=== PATIENT | male | born 1945 | race Caucasian/White ===

== ENCOUNTER 2020-04-10 15:21 | Observation (INO) ==
[2020-04-10] MEDS ORDERED: Isovue-370 500 ML BOTTLE IVP ONE (16:24)
[2020-04-10 16:47] LABS: Basophils # 0.1 K/mcL (0.0-0.2); Basophils % 0.7 %; Eosinophils # 0.1 K/mcL (0.0-0.6); Eosinophils % 0.9 %; Hematocrit 43.5 % (37.5-50.1); Hemoglobin 13.4 g/dL (12.9-16.9); INR 2.3; Immature Granulocytes % 1.4 % (0-4); Lymphocytes # 1.1 K/mcL (0.6-4.6); Lymphocytes % 8.1 %; Mean Corpuscular HGB Conc 30.8 g/dL (31.6-35.5); Mean Corpuscular Hemoglobin 29.3 pg (28.0-33.3); Monocytes # 1.5 K/mcL (0.0-1.3); Monocytes % 10.8 %; Neutrophils # 10.6 K/mcL (1.6-8.9); Platelet Count 187 K/mcL (140-400); Prothrombin Time 26.7 Seconds (9.4-12.1); Red Blood Count 4.58 M/mcL (4.19-5.50); Red Cell Distribution Width 18.7 % (11.5-14.5); Segmented Neutrophils % 78.1 %; White Blood Count 13.6 K/mcL (4.3-11.1)
[2020-04-10 16:49] LABS: Activated Partial Thrombo Time 40.9 Seconds (26.0-36.0)
[2020-04-10 17:14] LABS: Albumin 3.8 g/dL (3.5-5.7); Bilirubin,Total 0.8 mg/dL (0.3-1.0); Calcium 9.2 mg/dL (8.6-10.3); Globulin 3.9 g/dL (2.4-3.5); Potassium 4.5 mEq/L (3.5-5.1); Total Protein 7.7 g/dL (6.4-8.9)
[2020-04-10] MEDS ORDERED: Ampicillin/Sulbactam 3,000 MG in 0.9 % Sodium Chloride Mini Bag 100 ML IVPB ONE (18:45)
[2020-04-10] MEDS ORDERED: Naloxone 0.4 MG/ML INJ IVP PRN (19:28)
[2020-04-10] MEDS ORDERED: *HR* Warfarin 1 MG TABLET PO ONE (22:45)
[2020-04-10] MEDS ORDERED: Vancomycin 1 EACH in 0.9 % Sodium Chloride 1 ML IVPB PRN (23:00)
[2020-04-10] MEDS ORDERED: Vancomycin 1,500 MG/265 ML IV.SOLN IVPB ONE (23:00)
[2020-04-10] MEDS: hydrALAZINE 10 MG TABLET PO SCH (23:03)
[2020-04-11] MEDS ORDERED: Piperacillin/Tazobactam 3.375 GM in 0.9 % Sodium Chloride Mini Bag 100 ML IVPB SCH
[2020-04-11 01:41] LABS: Basophils # 0.1 K/mcL (0.0-0.2); Basophils % 0.7 %; Eosinophils # 0.2 K/mcL (0.0-0.6); Eosinophils % 1.4 %; Hematocrit 38.9 % (37.5-50.1); Hemoglobin 12.3 g/dL (12.9-16.9); Immature Granulocytes % 1.3 % (0-4); Lymphocytes # 1.1 K/mcL (0.6-4.6); Lymphocytes % 10.2 %; Mean Corpuscular HGB Conc 31.6 g/dL (31.6-35.5); Mean Corpuscular Hemoglobin 30.3 pg (28.0-33.3); Mean Corpuscular Volume 95.8 fL (83.0-100.0); Mean Platelet Volume 10.4 fL (9.4-12.4); Monocytes # 1.2 K/mcL (0.0-1.3); Monocytes % 11.4 %; Neutrophils # 8.1 K/mcL (1.6-8.9); Platelet Count 151 K/mcL (140-400); Red Blood Count 4.06 M/mcL (4.19-5.50); Red Cell Distribution Width 18.6 % (11.5-14.5); White Blood Count 10.8 K/mcL (4.3-11.1)
[2020-04-11 01:42] LABS: INR 2.5; Prothrombin Time 28.3 Seconds (9.4-12.1)
[2020-04-11 01:55] LABS: Albumin 3.1 g/dL (3.5-5.7); Bilirubin,Total 0.7 mg/dL (0.3-1.0); Calcium 8.8 mg/dL (8.6-10.3); Globulin 3.1 g/dL (2.4-3.5); Potassium 4.6 mEq/L (3.5-5.1); Total Protein 6.2 g/dL (6.4-8.9)
[2020-04-11] MEDS: Budesonide/Formoterol 80/4.5 1 PUFF INH IH SCH ×2 (07:48→19:37)
[2020-04-11] MEDS: hydrALAZINE 10 MG TABLET PO SCH ×2 (08:01→20:08)
[2020-04-11] MEDS: amLODIPine 5 MG TABLET PO SCH (08:02)
[2020-04-11] MEDS: predniSONE 5 MG TABLET PO SCH (08:02)
[2020-04-11] MEDS: Cholecalciferol (D-3) 1,000 UNIT (25MCG) TABLET PO SCH (08:02)
[2020-04-11] MEDS: Piperacillin/Tazobactam 3.375 GM in 0.9 % Sodium Chloride Mini Bag 100 ML IVPB SCH ×2 (11:08→23:41)
[2020-04-11] MEDS ORDERED: *HR* Warfarin 1 MG TABLET PO ONE ×2 (13:25→15:30)
[2020-04-11 15:05] LABS: Hepatitis B Surface Antibody < 3.10 mIU/mL
[2020-04-11 15:16] LABS: Hepatitis B Surface Antigen Nonreactive (Nonreactive)
[2020-04-11] MEDS ORDERED: *HR* Warfarin 1 MG TABLET PO SCH (18:00)
[2020-04-11] MEDS ORDERED: Warfarin perPT PO PRN (18:00)
[2020-04-12 05:23] LABS: INR 2.4; Prothrombin Time 27.2 Seconds (9.4-12.1)
[2020-04-12 05:25] LABS: Basophils # 0.1 K/mcL (0.0-0.2); Basophils % 0.6 %; Eosinophils # 0.2 K/mcL (0.0-0.6); Eosinophils % 1.5 %; Hematocrit 36.7 % (37.5-50.1); Hemoglobin 11.4 g/dL (12.9-16.9); Immature Granulocytes % 0.9 % (0-4); Lymphocytes % 8.8 %; Mean Corpuscular HGB Conc 31.1 g/dL (31.6-35.5); Mean Corpuscular Volume 96.6 fL (83.0-100.0); Mean Platelet Volume 10.2 fL (9.4-12.4); Monocytes # 1.1 K/mcL (0.0-1.3); Monocytes % 10.3 %; Neutrophils # 8.5 K/mcL (1.6-8.9); Platelet Count 178 K/mcL (140-400); Red Cell Distribution Width 18.5 % (11.5-14.5); Segmented Neutrophils % 77.9 %; White Blood Count 10.9 K/mcL (4.3-11.1)
[2020-04-12 05:39] LABS: Calcium 8.6 mg/dL (8.6-10.3); Potassium 4.3 mEq/L (3.5-5.1)
[2020-04-12] MEDS ORDERED: 0.9 % Sodium Chloride 250 ML IVC PRN (07:13)
[2020-04-12] MEDS ORDERED: 0.9 % Sodium Chloride 1,000 ML PRIME SCH (07:15)
[2020-04-12] MEDS: Budesonide/Formoterol 80/4.5 1 PUFF INH IH SCH ×2 (07:16→19:22)
[2020-04-12] MEDS: Cholecalciferol (D-3) 1,000 UNIT (25MCG) TABLET PO SCH (12:30)
[2020-04-12] MEDS: hydrALAZINE 10 MG TABLET PO SCH ×2 (12:30→19:52)
[2020-04-12] MEDS: predniSONE 5 MG TABLET PO SCH (12:30)
[2020-04-12] MEDS: amLODIPine 5 MG TABLET PO SCH (12:30)
[2020-04-12] MEDS: Piperacillin/Tazobactam 3.375 GM in 0.9 % Sodium Chloride Mini Bag 100 ML IVPB SCH ×2 (12:31→23:26)
[2020-04-12] MEDS ORDERED: *HR* Warfarin 1 MG TABLET PO ONE (18:00)
[2020-04-13 02:32] LABS: Basophils # 0.1 K/mcL (0.0-0.2); Basophils % 0.6 %; Eosinophils # 0.2 K/mcL (0.0-0.6); Eosinophils % 1.4 %; Hemoglobin 11.9 g/dL (12.9-16.9); Immature Granulocytes % 0.7 % (0-4); Lymphocytes # 1.1 K/mcL (0.6-4.6); Lymphocytes % 10.1 %; Mean Corpuscular HGB Conc 30.5 g/dL (31.6-35.5); Mean Corpuscular Hemoglobin 28.8 pg (28.0-33.3); Mean Corpuscular Volume 94.4 fL (83.0-100.0); Mean Platelet Volume 10.2 fL (9.4-12.4); Monocytes % 8.9 %; Neutrophils # 8.5 K/mcL (1.6-8.9); Platelet Count 189 K/mcL (140-400); Red Blood Count 4.13 M/mcL (4.19-5.50); Red Cell Distribution Width 18.4 % (11.5-14.5); Segmented Neutrophils % 78.3 %; White Blood Count 10.8 K/mcL (4.3-11.1)
[2020-04-13 02:38] LABS: INR 2.3; Prothrombin Time 26.4 Seconds (9.4-12.1)
[2020-04-13 02:50] LABS: Calcium 8.6 mg/dL (8.6-10.3); Potassium 4.2 mEq/L (3.5-5.1)
[2020-04-13 07:04] VITALS: BP 119/66
[2020-04-13] MEDS: Budesonide/Formoterol 80/4.5 1 PUFF INH IH SCH (07:37)
[2020-04-13] MEDS: hydrALAZINE 10 MG TABLET PO SCH (07:49)
[2020-04-13] MEDS: amLODIPine 5 MG TABLET PO SCH (07:49)
[2020-04-13] MEDS: Cholecalciferol (D-3) 1,000 UNIT (25MCG) TABLET PO SCH (07:49)
[2020-04-13] MEDS: predniSONE 5 MG TABLET PO SCH (07:50)
[2020-04-13] MEDS ORDERED: *HR* Warfarin 1 MG TABLET PO ONE (18:00)
== END 2020-04-13 10:15 | disposition home or self-care (01) ==
LOC: EMEROOARM 15:21 → 2ANU 15:21 → SUATTDRO 19:31 → 2ANU 19:59
PROVIDERS: ADMIT Internal Medicine; ATTEND Family Medicine

== ENCOUNTER 2020-05-17 09:54 | Inpatient (IN) ==
[2020-05-17] MEDS ORDERED: Dexamethasone 4 MG/ML VIAL IVP STA (10:27)
[2020-05-17 10:44] LABS: Basophils # 0.1 K/mcL (0.0-0.2); Basophils % 0.3 %; Immature Granulocytes % 1.1 % (0-4); Lymphocytes # 0.6 K/mcL (0.6-4.6); Lymphocytes % 2.4 %; Mean Corpuscular HGB Conc 34.2 g/dL (31.6-35.5); Mean Corpuscular Volume 99.5 fL (83.0-100.0); Mean Platelet Volume 10.2 fL (9.4-12.4); Monocytes # 1.3 K/mcL (0.0-1.3); Monocytes % 5.9 %; Neutrophils # 20.4 K/mcL (1.6-8.9); Platelet Count 163 K/mcL (140-400); Red Blood Count 3.82 M/mcL (4.19-5.50); Red Cell Distribution Width 17.6 % (11.5-14.5); Segmented Neutrophils % 90.3 %; White Blood Count 22.6 K/mcL (4.3-11.1)
[2020-05-17 11:01] LABS: Calcium 9.1 mg/dL (8.6-10.3); Potassium 4.6 mEq/L (3.5-5.1)
[2020-05-17] MEDS ORDERED: cefTRIAXone 1,000 MG in Water for inj. (sterile) 10 ML IVP ONE (11:47)
[2020-05-17] MEDS ORDERED: Azithromycin 500 MG in 0.9 % Sodium Chloride 250 ML IVPB ONE (11:47)
[2020-05-17] MEDS ORDERED: Acetaminophen 325 MG TABLET PO PRN (13:12)
[2020-05-17] MEDS ORDERED: Ondansetron 4 MG/2 ML VIAL IVP PRN (13:12)
[2020-05-17] MEDS ORDERED: *HR* Heparin 5,000 UNIT/ML VIAL SQ SCH (16:00)
[2020-05-17] MEDS ORDERED: *HR* Heparin 10,000 UNIT/10 ML VIAL IV PRN (16:48)
[2020-05-17] MEDS ORDERED: 0.9 % Sodium Chloride 250 ML IVC PRN (16:48)
[2020-05-17] MEDS ORDERED: 0.9 % Sodium Chloride 1,000 ML PRIME SCH (17:00)
[2020-05-17 19:07] LABS: INR 2.2; Prothrombin Time 25.3 Seconds (9.4-12.1)
[2020-05-17 19:43] LABS: Hepatitis B Surface Antibody < 3.10 mIU/mL
[2020-05-17 19:53] LABS: Hepatitis B Surface Antigen Nonreactive (Nonreactive)
[2020-05-17] MEDS ORDERED: *HR* Warfarin 1 MG TABLET PO ONE (21:45)
[2020-05-17] MEDS: Budesonide/Formoterol 80/4.5 1 PUFF INH IH SCH (22:06)
[2020-05-17] MEDS: Ipratropium 1 PUFF INHALER IH SCH (22:06)
[2020-05-17] MEDS: Dexamethasone 4 MG/ML VIAL IVP SCH (22:24)
[2020-05-17] MEDS ORDERED: Ipratropium/Albuterol Neb 3 ML IH SCH (23:00)
[2020-05-18] MEDS: Ipratropium 1 PUFF INHALER IH SCH ×4 (03:27→21:14)
[2020-05-18] MEDS ORDERED: 0.9 % Sodium Chloride 250 ML ONE (04:04)
[2020-05-18 04:37] LABS: Hematocrit 35.1 % (37.5-50.1); Hemoglobin 12.2 g/dL (12.9-16.9); Mean Corpuscular HGB Conc 34.8 g/dL (31.6-35.5); Mean Corpuscular Hemoglobin 34.9 pg (28.0-33.3); Mean Corpuscular Volume 100.3 fL (83.0-100.0); Mean Platelet Volume 10.8 fL (9.4-12.4); Platelet Count 143 K/mcL (140-400); Red Cell Distribution Width 17.5 % (11.5-14.5); White Blood Count 16.3 K/mcL (4.3-11.1)
[2020-05-18 05:03] LABS: INR 2.9; Prothrombin Time 32.1 Seconds (9.4-12.1)
[2020-05-18 05:16] LABS: BUN/Creatinine Ratio 13 (6-26); Blood Urea Nitrogen 78 mg/dL (8-23); C-Reactive Protein > 300 mg/L (Less than 10); Calcium 8.4 mg/dL (8.6-10.3); Carbon Dioxide 21 mEq/L (23-29); Chloride 101 mEq/L (98-107); Ferritin > 1500 ng/mL (20-250); Glucose 117 mg/dL (70-105); Lactate Dehydrogenase 323 Units/L (140-271); Magnesium 2.1 mg/dL (1.6-2.6); Osmolality,Calculated 306 (280-300); Potassium 4.5 mEq/L (3.5-5.1); Sodium 136 mEq/L (136-145); eGFR For African Americans 12 (> 60); eGFR For Non-African Americans 10 (> 60)
[2020-05-18] MEDS ORDERED: *HR* Heparin 10,000 UNIT/10 ML VIAL IV PRN ×2 (07:51→13:05)
[2020-05-18] MEDS ORDERED: 0.9 % Sodium Chloride 250 ML IVC PRN (07:51)
[2020-05-18 07:52] LABS: Alanine Aminotransferase 42 Units/L (7-52); Albumin 2.9 g/dL (3.5-5.7); Albumin/Globulin Ratio 0.8 (1.1-2.2); Alkaline Phosphatase 75 Units/L (34-104); Aspartate Amino Transferase 49 Units/L (13-39); Bilirubin,Direct 0.4 mg/dL (0.0-0.2); Bilirubin,Indirect 0.4 mg/dL (0.0-1.0); Bilirubin,Total 0.8 mg/dL (0.3-1.0); Globulin 3.7 g/dL (2.4-3.5); Total Protein 6.6 g/dL (6.4-8.9)
[2020-05-18] MEDS: cefTRIAXone 1,000 MG in Water for inj. (sterile) 10 ML IVP SCH (07:59)
[2020-05-18] MEDS: amLODIPine 5 MG TABLET PO SCH (08:00)
[2020-05-18] MEDS: Dexamethasone 4 MG/ML VIAL IVP SCH ×2 (08:00→20:31)
[2020-05-18] MEDS: Azithromycin 250 MG TABLET PO SCH (08:00)
[2020-05-18] MEDS: Budesonide/Formoterol 80/4.5 1 PUFF INH IH SCH ×2 (10:25→21:14)
[2020-05-18] MEDS ORDERED: Heparin 1,000 UNITS/500 mL 500 ML ONE (13:36)
[2020-05-18] MEDS ORDERED: *HR* Heparin 5,000 UNIT/ML VIAL ONE (14:17)
[2020-05-18] MEDS: Calcium Acetate 667 MG CAPSULE PO SCH (16:12)
[2020-05-18] MEDS: Bumetanide 1 MG TABLET PO SCH (16:14)
[2020-05-18] MEDS ORDERED: Warfarin perPT PO PRN (18:00)
[2020-05-19] MEDS: Ipratropium 1 PUFF INHALER IH SCH ×4 (03:29→21:12)
[2020-05-19 04:01] LABS: INR 4.3
[2020-05-19 04:02] LABS: Prothrombin Time 48.2 Seconds (9.4-12.1)
[2020-05-19 04:03] LABS: Calcium 8.4 mg/dL (8.6-10.3); Potassium 4.1 mEq/L (3.5-5.1)
[2020-05-19] MEDS ORDERED: 0.9 % Sodium Chloride 250 ML ONE (05:28)
[2020-05-19 07:29] LABS: Hematocrit 34.9 % (37.5-50.1); Hemoglobin 11.3 g/dL (12.9-16.9); Mean Corpuscular HGB Conc 32.4 g/dL (31.6-35.5); Mean Corpuscular Hemoglobin 30.7 pg (28.0-33.3); Mean Corpuscular Volume 94.8 fL (83.0-100.0); Mean Platelet Volume 11.4 fL (9.4-12.4); Platelet Count 163 K/mcL (140-400); Red Blood Count 3.68 M/mcL (4.19-5.50); White Blood Count 17.4 K/mcL (4.3-11.1)
[2020-05-19] MEDS: Bumetanide 1 MG TABLET PO SCH ×3 (07:59→19:26)
[2020-05-19] MEDS: Calcium Acetate 667 MG CAPSULE PO SCH ×3 (07:59→17:47)
[2020-05-19] MEDS: amLODIPine 5 MG TABLET PO SCH (07:59)
[2020-05-19] MEDS: Dexamethasone 4 MG/ML VIAL IVP SCH (08:00)
[2020-05-19] MEDS: Azithromycin 250 MG TABLET PO SCH (08:00)
[2020-05-19] MEDS: cefTRIAXone 1,000 MG in Water for inj. (sterile) 10 ML IVP SCH (08:00)
[2020-05-19] MEDS ORDERED: 0.9 % Sodium Chloride 250 ML IVC PRN (09:33)
[2020-05-19] MEDS ORDERED: *HR* Heparin 10,000 UNIT/10 ML VIAL IV PRN (09:33)
[2020-05-19 10:12] LABS: D-Dimer 30509 ng/mLFEU (0-500)
[2020-05-19] MEDS: Budesonide/Formoterol 80/4.5 1 PUFF INH IH SCH ×2 (10:29→21:12)
[2020-05-19] MEDS ORDERED: *HR* Heparin 5,000 UNIT/ML VIAL IVP PRN ×4 (10:36→16:30)
[2020-05-19] MEDS ORDERED: *HR* Heparin 5,000 UNIT/ML VIAL IVP ONE (10:36)
[2020-05-19] MEDS ORDERED: Heparin 25,000UNIT/250ML 1/2NS 25,000 UNIT/250 ML IV.SOLN IVC SCH ×2 (10:45→16:30)
[2020-05-19] MEDS ORDERED: *HR* Alteplase (Cathflo) 2 MG VIAL IVP ONE (10:45)
[2020-05-19] MEDS ORDERED: Dexamethasone 4 MG/ML VIAL IVP ONE ×2 (10:53)
[2020-05-19 11:12] LABS: Heparin anti-factor XA UFH < 0.04 IU/mL (0.30-0.70)
[2020-05-19] MEDS: Pantoprazole 40 MG VIAL IVP SCH (11:55)
[2020-05-19] MEDS ORDERED: *HR* Heparin 5,000 UNIT/ML VIAL SQ SCH (22:00)
[2020-05-20 01:21] LABS: Heparin anti-factor XA UFH 0.13 IU/mL (0.30-0.70)
[2020-05-20 01:27] LABS: BUN/Creatinine Ratio 14 (6-26); Blood Urea Nitrogen 51 mg/dL (8-23); C-Reactive Protein 156 mg/L (Less than 10); Calcium 8.7 mg/dL (8.6-10.3); Carbon Dioxide 23 mEq/L (23-29); Chloride 101 mEq/L (98-107); Glucose 174 mg/dL (70-105); Lactate Dehydrogenase 308 Units/L (140-271); Magnesium 2.3 mg/dL (1.6-2.6); Osmolality,Calculated 302 (280-300); Phosphorous 3.8 mg/dL (2.7-4.5); Potassium 4.2 mEq/L (3.5-5.1); Sodium 137 mEq/L (136-145); eGFR For African Americans 20 (> 60); eGFR For Non-African Americans 17 (> 60)
[2020-05-20 01:31] LABS: Prothrombin Time 44.1 Seconds (9.4-12.1)
[2020-05-20 01:42] LABS: Hematocrit 36.6 % (37.5-50.1); Hemoglobin 11.9 g/dL (12.9-16.9); Mean Corpuscular HGB Conc 32.5 g/dL (31.6-35.5); Mean Corpuscular Hemoglobin 31.1 pg (28.0-33.3); Mean Platelet Volume 10.4 fL (9.4-12.4); Platelet Count 143 K/mcL (140-400); Red Blood Count 3.83 M/mcL (4.19-5.50); Red Cell Distribution Width 16.9 % (11.5-14.5); White Blood Count 15.6 K/mcL (4.3-11.1)
[2020-05-20 01:44] LABS: Ferritin > 1500 ng/mL (20-250); Mean Corpuscular Volume 95.6 fL (83.0-100.0)
[2020-05-20] MEDS: Ipratropium 1 PUFF INHALER IH SCH ×4 (03:15→21:47)
[2020-05-20] MEDS: amLODIPine 5 MG TABLET PO SCH (08:45)
[2020-05-20] MEDS: Azithromycin 250 MG TABLET PO SCH (08:45)
[2020-05-20] MEDS: Calcium Acetate 667 MG CAPSULE PO SCH ×3 (08:45→16:18)
[2020-05-20] MEDS: Dexamethasone Sodium Phos/PF 10 MG/ML VIAL IVP SCH (08:46)
[2020-05-20] MEDS: Bumetanide 1 MG TABLET PO SCH ×2 (08:46→16:17)
[2020-05-20] MEDS: Pantoprazole 40 MG VIAL IVP SCH (08:48)
[2020-05-20] MEDS: cefTRIAXone 1,000 MG in Water for inj. (sterile) 10 ML IVP SCH (08:48)
[2020-05-20] MEDS: Budesonide/Formoterol 80/4.5 1 PUFF INH IH SCH ×2 (09:50→21:47)
[2020-05-21 01:28] LABS: Adenovirus F 40/41 PCR Not detected (Not detect); Astrovirus PCR Not detected (Not detect); C.difficile Toxin A/B Gene PCR Not detected (Not detect); Campylobacter by PCR Not detected (Not detect); Cryptosporidium by PCR Not detected (Not detect); Cyclospora cayetanensis PCR Not detected (Not detect); E. coli O157 by PCR Not detected (Not detect); Entamoeba histolytica PCR Not detected (Not detect); Enteroaggregative E.coli(EAEC) Not detected (Not detect); Enteropathogenic E.coli(EPEC) Not detected (Not detect); Enterotoxigenic E.coli (ETEC) Not detected (Not detect); Giardia lamblia PCR Not detected (Not detect); Norovirus GI/GII PCR Not detected (Not detect); Plesiomonas shigelloides PCR Not detected (Not detect); Rotavirus A PCR Not detected (Not detect); Salmonella PCR Not detected (Not detect); Sapovirus PCR Not detected (Not detect); Shig/EnteroinvasiveE coli EIEC Not detected (Not detect); Shigalike tox-prod E coli STEC Not detected (Not detect); Vibrio PCR Not detected (Not detect); Vibrio cholerae PCR Not detected (Not detect); Yersinia enterocolitica PCR Not detected (Not detect)
[2020-05-21] MEDS: Ipratropium 1 PUFF INHALER IH SCH ×4 (03:32→21:09)
[2020-05-21 06:31] LABS: Calcium 9.3 mg/dL (8.6-10.3); Potassium 4.7 mEq/L (3.5-5.1)
[2020-05-21 06:51] LABS: INR 4.6; Prothrombin Time 50.7 Seconds (9.4-12.1)
[2020-05-21] MEDS: Pantoprazole 40 MG VIAL IVP SCH (07:59)
[2020-05-21] MEDS: cefTRIAXone 1,000 MG in Water for inj. (sterile) 10 ML IVP SCH (07:59)
[2020-05-21] MEDS: Calcium Acetate 667 MG CAPSULE PO SCH ×3 (08:00→16:17)
[2020-05-21] MEDS: Bumetanide 1 MG TABLET PO SCH ×2 (08:00→16:17)
[2020-05-21] MEDS: Azithromycin 250 MG TABLET PO SCH (08:00)
[2020-05-21] MEDS: Dexamethasone Sodium Phos/PF 10 MG/ML VIAL IVP SCH (08:03)
[2020-05-21] MEDS: amLODIPine 5 MG TABLET PO SCH (08:04)
[2020-05-21] MEDS: Budesonide/Formoterol 80/4.5 1 PUFF INH IH SCH ×2 (11:07→21:10)
[2020-05-22] MEDS: Ipratropium 1 PUFF INHALER IH SCH ×4 (03:12→21:08)
[2020-05-22] MEDS ORDERED: 0.9 % Sodium Chloride 1,000 ML PRIME SCH (07:30)
[2020-05-22] MEDS ORDERED: 0.9 % Sodium Chloride 250 ML IVC PRN (07:30)
[2020-05-22] MEDS ORDERED: *HR* Heparin 10,000 UNIT/10 ML VIAL IV PRN (07:30)
[2020-05-22] MEDS: Pantoprazole 40 MG VIAL IVP SCH (07:49)
[2020-05-22] MEDS: Dexamethasone Sodium Phos/PF 10 MG/ML VIAL IVP SCH (07:49)
[2020-05-22] MEDS: amLODIPine 5 MG TABLET PO SCH (07:50)
[2020-05-22] MEDS: Bumetanide 1 MG TABLET PO SCH ×2 (07:50→16:05)
[2020-05-22] MEDS: Calcium Acetate 667 MG CAPSULE PO SCH ×3 (07:50→16:05)
[2020-05-22] MEDS: Budesonide/Formoterol 80/4.5 1 PUFF INH IH SCH ×2 (10:27→21:09)
[2020-05-22 13:04] LABS: Hematocrit 32.9 % (37.5-50.1); Hemoglobin 11.9 g/dL (12.9-16.9); Mean Corpuscular HGB Conc 36.2 g/dL (31.6-35.5); Mean Corpuscular Hemoglobin 37.3 pg (28.0-33.3); Mean Platelet Volume 10.8 fL (9.4-12.4); Platelet Count 115 K/mcL (140-400); Red Blood Count 3.19 M/mcL (4.19-5.50); White Blood Count 16.4 K/mcL (4.3-11.1)
[2020-05-22 13:13] LABS: Prothrombin Time 50.8 Seconds (9.4-12.1)
[2020-05-22 13:14] LABS: INR 4.6
[2020-05-22 13:19] LABS: Blood Urea Nitrogen > 130 mg/dL (8-23); Calcium 8.9 mg/dL (8.6-10.3); Carbon Dioxide 22 mEq/L (23-29); Chloride 101 mEq/L (98-107); Glucose 130 mg/dL (70-105); Potassium 4.9 mEq/L (3.5-5.1); Sodium 138 mEq/L (136-145); eGFR For African Americans 11 (> 60); eGFR For Non-African Americans 9 (> 60)
[2020-05-22 13:20] LABS: C-Reactive Protein 42 mg/L (Less than 10); Lactate Dehydrogenase 319 Units/L (140-271)
[2020-05-22 13:48] LABS: Ferritin > 1500 ng/mL (20-250)
[2020-05-23] MEDS: Ipratropium 1 PUFF INHALER IH SCH ×4 (03:14→21:48)
[2020-05-23 05:12] LABS: Hematocrit 36.6 % (37.5-50.1); Hemoglobin 12.7 g/dL (12.9-16.9); Mean Corpuscular HGB Conc 34.7 g/dL (31.6-35.5); Mean Corpuscular Hemoglobin 34.6 pg (28.0-33.3); Mean Corpuscular Volume 99.7 fL (83.0-100.0); Mean Platelet Volume 11.1 fL (9.4-12.4); Platelet Count 109 K/mcL (140-400); Red Blood Count 3.67 M/mcL (4.19-5.50); Red Cell Distribution Width 17.2 % (11.5-14.5); White Blood Count 23.4 K/mcL (4.3-11.1)
[2020-05-23 05:36] LABS: INR 4.3; Prothrombin Time 48.2 Seconds (9.4-12.1)
[2020-05-23] MEDS: Dexamethasone Sodium Phos/PF 10 MG/ML VIAL IVP SCH (07:34)
[2020-05-23] MEDS: Bumetanide 1 MG TABLET PO SCH ×2 (07:34→17:13)
[2020-05-23] MEDS: amLODIPine 5 MG TABLET PO SCH (07:35)
[2020-05-23] MEDS: Calcium Acetate 667 MG CAPSULE PO SCH ×3 (07:35→17:13)
[2020-05-23] MEDS: Budesonide/Formoterol 80/4.5 1 PUFF INH IH SCH ×2 (09:44→21:48)
[2020-05-23] MEDS ORDERED: Vancomycin 1 EACH in 0.9 % Sodium Chloride 250 ML IVPB PRN (10:00)
[2020-05-23] MEDS ORDERED: Vancomycin 1,500 MG/265 ML IV.SOLN IVPB ONE (10:13)
[2020-05-23] MEDS: Cefepime HCl 1,000 MG in Water for inj. (sterile) 10 ML IVP SCH (11:09)
[2020-05-23 15:19] LABS: Adenovirus Not Detected (Not Detect); Coronavirus 229E Not Detected (Not Detect); Coronavirus HKU1 Not Detected (Not Detect); Coronavirus NL63 Not Detected (Not Detect)
[2020-05-23 15:20] LABS: Bordetella Pertussis Not Detected (Not Detect); Chlamydophila pneumoniae Not Detected (Not Detect); Coronavirus OC43 Not Detected (Not Detect); Human Metapneumovirus Not Detected (Not Detect); Human Rhinovirus/Enterovirus Not Detected (Not Detect); Influenza A Subtype 2009 H1 Not Detected (Not Detect); Influenza B Not Detected (Not Detect); Mycoplasma pneumoniae Not Detected (Not Detect); Parainfluenza Virus 1 Not Detected (Not Detect); Parainfluenza Virus 2 Not Detected (Not Detect); Parainfluenza Virus 3 Not Detected (Not Detect); Parainfluenza Virus 4 Not Detected (Not Detect); Respiratory Syncytial Virus Not Detected (Not Detect)
[2020-05-23 15:25] LABS: SARS-CoV-2 DETECTED (Not Detect)
[2020-05-23] MEDS ORDERED: 0.9 % Sodium Chloride 500 ML ONE (15:42)
[2020-05-24] MEDS: Ipratropium 1 PUFF INHALER IH SCH ×4 (03:28→22:11)
[2020-05-24 03:48] LABS: Hematocrit 34.7 % (37.5-50.1); Mean Corpuscular HGB Conc 34.6 g/dL (31.6-35.5); Mean Corpuscular Hemoglobin 34.5 pg (28.0-33.3); Mean Corpuscular Volume 99.7 fL (83.0-100.0); Mean Platelet Volume 10.4 fL (9.4-12.4); Platelet Count 100 K/mcL (140-400); Red Blood Count 3.48 M/mcL (4.19-5.50); Red Cell Distribution Width 17.7 % (11.5-14.5)
[2020-05-24 04:12] LABS: Calcium 8.7 mg/dL (8.6-10.3); Potassium 5.3 mEq/L (3.5-5.1)
[2020-05-24] MEDS: Calcium Acetate 667 MG CAPSULE PO SCH ×3 (08:10→17:52)
[2020-05-24] MEDS ORDERED: *HR* Heparin 10,000 UNIT/10 ML VIAL IV PRN (08:10)
[2020-05-24] MEDS: Bumetanide 1 MG TABLET PO SCH ×2 (08:10→17:52)
[2020-05-24] MEDS ORDERED: 0.9 % Sodium Chloride 250 ML IVC PRN (08:10)
[2020-05-24] MEDS: Dexamethasone Sodium Phos/PF 10 MG/ML VIAL IVP SCH (08:11)
[2020-05-24 09:25] LABS: Mean Corpuscular Volume 103.1 fL (83.0-100.0)
[2020-05-24] MEDS: Budesonide/Formoterol 80/4.5 1 PUFF INH IH SCH ×2 (09:25→22:11)
[2020-05-24] MEDS: Cefepime HCl 1,000 MG in Water for inj. (sterile) 10 ML IVP SCH (10:38)
[2020-05-24] MEDS ORDERED: *HR* LORazepam 2 MG/ML VIAL IVP ONE (13:35)
[2020-05-25] MEDS: Ipratropium 1 PUFF INHALER IH SCH ×4 (03:48→22:01)
[2020-05-25 04:27] LABS: Hematocrit 37.2 % (37.5-50.1); Mean Corpuscular Volume 96.4 fL (83.0-100.0); Red Blood Count 3.86 M/mcL (4.19-5.50)
[2020-05-25 04:29] LABS: Hemoglobin 12.5 g/dL (12.9-16.9); Immature Platelets 7.7 % (1.1-6.1); Mean Corpuscular HGB Conc 33.6 g/dL (31.6-35.5); Mean Corpuscular Hemoglobin 32.4 pg (28.0-33.3); Mean Platelet Volume 11.5 fL (9.4-12.4); Red Cell Distribution Width 16.3 % (11.5-14.5); White Blood Count 29.1 K/mcL (4.3-11.1)
[2020-05-25 04:49] LABS: Calcium 8.5 mg/dL (8.6-10.3); Potassium 5.1 mEq/L (3.5-5.1)
[2020-05-25] MEDS: Bumetanide 1 MG TABLET PO SCH ×2 (08:29→16:13)
[2020-05-25] MEDS: Calcium Acetate 667 MG CAPSULE PO SCH ×3 (08:29→16:13)
[2020-05-25] MEDS: Dexamethasone 4 MG/ML VIAL IVP SCH (08:34)
[2020-05-25] MEDS: Budesonide/Formoterol 80/4.5 1 PUFF INH IH SCH ×2 (09:51→22:01)
[2020-05-25 10:08] LABS: INR 1.6; Prothrombin Time 17.7 Seconds (9.4-12.1)
[2020-05-25] MEDS ORDERED: *HR* Heparin 5,000 UNIT/ML VIAL IVP ONE (10:26)
[2020-05-25] MEDS ORDERED: *HR* Heparin 5,000 UNIT/ML VIAL IVP PRN ×2 (10:26)
[2020-05-25 11:43] LABS: Hemoglobin 13.9 g/dL (12.9-16.9)
[2020-05-25 11:45] LABS: Hematocrit 41.2 % (37.5-50.1); Mean Corpuscular HGB Conc 33.7 g/dL (31.6-35.5); Mean Corpuscular Hemoglobin 34.1 pg (28.0-33.3); Mean Platelet Volume 10.3 fL (9.4-12.4); Red Blood Count 4.08 M/mcL (4.19-5.50); Red Cell Distribution Width 17.5 % (11.5-14.5); White Blood Count 27.4 K/mcL (4.3-11.1)
[2020-05-25 12:24] LABS: Heparin anti-factor XA UFH < 0.04 IU/mL (0.30-0.70); INR 1.4; Prothrombin Time 16.4 Seconds (9.4-12.1)
[2020-05-25] MEDS: Heparin 25,000UNIT/250ML 1/2NS 25,000 UNIT/250 ML IV.SOLN IVC SCH (13:08)
[2020-05-25] MEDS ORDERED: 0.9 % Sodium Chloride 250 ML ONE (13:45)
[2020-05-25] MEDS: Cefepime HCl 1,000 MG in Water for inj. (sterile) 10 ML IVP SCH (16:13)
[2020-05-26 02:56] LABS: Mean Corpuscular Volume 99.7 fL (83.0-100.0)
[2020-05-26 02:57] LABS: Hematocrit 38.6 % (37.5-50.1); Hemoglobin 13.1 g/dL (12.9-16.9); Mean Corpuscular HGB Conc 33.9 g/dL (31.6-35.5); Mean Corpuscular Hemoglobin 33.9 pg (28.0-33.3); Mean Platelet Volume 11.1 fL (9.4-12.4); Platelet Count 113 K/mcL (140-400); Red Blood Count 3.87 M/mcL (4.19-5.50); Red Cell Distribution Width 16.9 % (11.5-14.5); White Blood Count 27.5 K/mcL (4.3-11.1)
[2020-05-26 03:13] LABS: Potassium 5.2 mEq/L (3.5-5.1)
[2020-05-26] MEDS: Ipratropium 1 PUFF INHALER IH SCH ×4 (03:48→21:39)
[2020-05-26] MEDS ORDERED: 0.9 % Sodium Chloride 250 ML IVC PRN (07:04)
[2020-05-26] MEDS: Bumetanide 1 MG TABLET PO SCH ×2 (08:29→15:39)
[2020-05-26] MEDS: Calcium Acetate 667 MG CAPSULE PO SCH ×3 (08:50→20:30)
[2020-05-26] MEDS: Dexamethasone 4 MG/ML VIAL IVP SCH (08:50)
[2020-05-26] MEDS ORDERED: 0.9 % Sodium Chloride 1,000 ML ONE ×2 (09:24→16:06)
[2020-05-26] MEDS ORDERED: *HR* Heparin 10,000 UNIT/10 ML VIAL ONE (09:48)
[2020-05-26] MEDS: Budesonide/Formoterol 80/4.5 1 PUFF INH IH SCH ×2 (10:01→21:39)
[2020-05-26] MEDS ORDERED: Cefepime HCl 1,000 MG in Water for inj. (sterile) 10 ML IVP SCH (16:00)
[2020-05-26] MEDS: Heparin 25,000UNIT/250ML 1/2NS 25,000 UNIT/250 ML IV.SOLN IVC SCH (16:02)
[2020-05-26] MEDS: Cefepime HCl 1,000 MG in Water for inj. (sterile) 10 ML IVP SCH ×2 (18:46→20:30)
[2020-05-27] MEDS: Ipratropium 1 PUFF INHALER IH SCH ×4 (03:31→21:32)
[2020-05-27 05:58] LABS: Hematocrit 40.1 % (37.5-50.1); Immature Platelets 9.6 % (1.1-6.1); Mean Corpuscular HGB Conc 32.4 g/dL (31.6-35.5); Mean Corpuscular Hemoglobin 31.5 pg (28.0-33.3); Mean Corpuscular Volume 97.1 fL (83.0-100.0); Red Blood Count 4.13 M/mcL (4.19-5.50); Red Cell Distribution Width 16.2 % (11.5-14.5)
[2020-05-27 06:00] LABS: White Blood Count 35.5 K/mcL (4.3-11.1)
[2020-05-27 06:15] LABS: Calcium 8.9 mg/dL (8.6-10.3); Potassium 5.4 mEq/L (3.5-5.1)
[2020-05-27] MEDS: Calcium Acetate 667 MG CAPSULE PO SCH ×3 (07:58→16:16)
[2020-05-27] MEDS: Bumetanide 1 MG TABLET PO SCH ×2 (07:58→16:16)
[2020-05-27] MEDS: Dexamethasone 4 MG/ML VIAL IVP SCH (07:58)
[2020-05-27] MEDS ORDERED: *HR* Heparin 5,000 UNIT/ML VIAL IVP PRN ×2 (08:34)
[2020-05-27] MEDS ORDERED: *HR* Heparin 5,000 UNIT/ML VIAL IVP ONE (08:34)
[2020-05-27 08:56] LABS: Bilirubin,Urine Negative (Negative); Blood,Urine Negative (Negative); Clarity,Urine Clear (Clear); Color,Urine Yellow (Yellow); Glucose,Urine (UA) Normal (Normal); Ketones,Urine Negative (Negative); Leukocyte Esterase,Urine Negative (Negative); Mucus,Urine Few per lpf (None-Few); Nitrite,Urine Negative (Negative); PH,Urine 5.5 pH Units (5.0-8.0); Protein,Urine 50 mg/dL (Neg-Trace); RBC,Urine 0-3 per hpf (0-3); Specific Gravity,Urine 1.016 (1.010-1.025); Urobilinogen,Urine Normal (Normal); WBC,Urine 0-3 per hpf (0-3)
[2020-05-27] MEDS: Heparin 25,000UNIT/250ML 1/2NS 25,000 UNIT/250 ML IV.SOLN IVC SCH (09:34)
[2020-05-27 09:46] LABS: Albumin 2.9 g/dL (3.5-5.7); Albumin/Globulin Ratio 0.9 (1.1-2.2); Bilirubin,Direct 0.1 mg/dL (0.0-0.2); Bilirubin,Indirect 0.6 mg/dL (0.0-1.0); Bilirubin,Total 0.7 mg/dL (0.3-1.0); Globulin 3.3 g/dL (2.4-3.5); Total Protein 6.2 g/dL (6.4-8.9)
[2020-05-27] MEDS: Budesonide/Formoterol 80/4.5 1 PUFF INH IH SCH ×2 (09:47→21:33)
[2020-05-27 12:35] LABS: INR 1.5; Prothrombin Time 16.7 Seconds (9.4-12.1)
[2020-05-27 12:55] LABS: Heparin anti-factor XA UFH 1.14 IU/mL (0.30-0.70)
[2020-05-27] MEDS: Cefepime HCl 1,000 MG in Water for inj. (sterile) 10 ML IVP SCH (19:47)
[2020-05-28] MEDS: Ipratropium 1 PUFF INHALER IH SCH ×5 (03:20→21:17)
[2020-05-28 08:49] LABS: Hemoglobin 13.8 g/dL (12.9-16.9); INR 1.4; Mean Corpuscular HGB Conc 32.2 g/dL (31.6-35.5); Mean Platelet Volume 11.1 fL (9.4-12.4); Platelet Count 151 K/mcL (140-400); Prothrombin Time 16.1 Seconds (9.4-12.1)
[2020-05-28 08:50] LABS: Hematocrit 42.8 % (37.5-50.1); Mean Corpuscular Hemoglobin 31.9 pg (28.0-33.3); Mean Corpuscular Volume 99.1 fL (83.0-100.0); Red Blood Count 4.32 M/mcL (4.19-5.50)
[2020-05-28 08:52] LABS: Activated Partial Thrombo Time 61.9 Seconds (26.0-36.0)
[2020-05-28] MEDS: Bumetanide 1 MG TABLET PO SCH ×2 (08:57→17:01)
[2020-05-28] MEDS: Dexamethasone 4 MG/ML VIAL IVP SCH (08:57)
[2020-05-28] MEDS: Calcium Acetate 667 MG CAPSULE PO SCH ×3 (08:57→15:57)
[2020-05-28 09:03] LABS: White Blood Count 32.5 K/mcL (4.3-11.1)
[2020-05-28 09:32] LABS: Blood Urea Nitrogen > 130 mg/dL (8-23); Calcium 9.2 mg/dL (8.6-10.3); Carbon Dioxide 21 mEq/L (23-29); Chloride 101 mEq/L (98-107); Glucose 78 mg/dL (70-105); Potassium 5.5 mEq/L (3.5-5.1); Sodium 139 mEq/L (136-145); eGFR For African Americans 13 (> 60); eGFR For Non-African Americans 10 (> 60)
[2020-05-28 09:40] LABS: Anisocytosis 1+ (Not Present); Eosinophils # 0.3 K/mcL (0.0-0.6); Monocytes # 1.6 K/mcL (0.0-1.3); Neutrophils # 29.3 K/mcL (1.6-8.9); Platelet Estimate Normal (Normal)
[2020-05-28] MEDS: Budesonide/Formoterol 80/4.5 1 PUFF INH IH SCH ×3 (10:24→21:17)
[2020-05-28] MEDS: Heparin 25,000UNIT/250ML 1/2NS 25,000 UNIT/250 ML IV.SOLN IVC SCH ×2 (10:45→18:16)
[2020-05-28] MEDS ORDERED: Heparin 1,000 UNITS/500 mL 500 ML ONE (12:39)
[2020-05-28] MEDS ORDERED: *HR* Heparin 5,000 UNIT/ML VIAL ONE (13:08)
[2020-05-28] MEDS: Cefepime HCl 1,000 MG in Water for inj. (sterile) 10 ML IVP SCH (18:16)
[2020-05-29] MEDS: Ipratropium 1 PUFF INHALER IH SCH ×4 (02:57→21:54)
[2020-05-29 06:41] LABS: Hematocrit 41.4 % (37.5-50.1); Hemoglobin 13.3 g/dL (12.9-16.9); Mean Corpuscular HGB Conc 32.1 g/dL (31.6-35.5); Mean Corpuscular Volume 99.8 fL (83.0-100.0); Mean Platelet Volume 11.6 fL (9.4-12.4); Platelet Count 180 K/mcL (140-400); Red Blood Count 4.15 M/mcL (4.19-5.50); Red Cell Distribution Width 15.9 % (11.5-14.5); White Blood Count 29.2 K/mcL (4.3-11.1)
[2020-05-29 07:00] LABS: Blood Urea Nitrogen > 130 mg/dL (8-23); Calcium 9.2 mg/dL (8.6-10.3); Carbon Dioxide 21 mEq/L (23-29); Chloride 102 mEq/L (98-107); Glucose 114 mg/dL (70-105); Potassium 5.9 mEq/L (3.5-5.1); Sodium 140 mEq/L (136-145); eGFR For African Americans 12 (> 60); eGFR For Non-African Americans 10 (> 60)
[2020-05-29] MEDS ORDERED: 0.9 % Sodium Chloride 250 ML IVC PRN (07:00)
[2020-05-29] MEDS ORDERED: 0.9 % Sodium Chloride 1,000 ML PRIME SCH (07:00)
[2020-05-29] MEDS: Bumetanide 1 MG TABLET PO SCH ×2 (08:18→16:54)
[2020-05-29] MEDS: Calcium Acetate 667 MG CAPSULE PO SCH ×3 (08:19→16:42)
[2020-05-29] MEDS: Dexamethasone 4 MG/ML VIAL IVP SCH (08:25)
[2020-05-29] MEDS ORDERED: *HR* Heparin 10,000 UNIT/10 ML VIAL IV PRN (08:28)
[2020-05-29] MEDS: Budesonide/Formoterol 80/4.5 1 PUFF INH IH SCH ×2 (09:55→21:53)
[2020-05-29] MEDS ORDERED: Lidocaine/EPI 1:100k 1% 50 ML VIAL ONE (10:05)
[2020-05-29] MEDS ORDERED: Heparin 1,000 UNITS/500 mL 500 ML ONE (10:05)
[2020-05-29] MEDS ORDERED: *HR* Heparin 5,000 UNIT/ML VIAL ONE (10:10)
[2020-05-29] MEDS ORDERED: Furosemide 40 MG/4 ML VIAL IVP ONE (12:48)
[2020-05-29] MEDS ORDERED: Albumin 25% 25gram/100mL 25 GM/100 ML IV.SOLN IVPB ONE (12:48)
[2020-05-29 14:32] LABS: Calcium 9.1 mg/dL (8.6-10.3); Potassium 5.5 mEq/L (3.5-5.1)
[2020-05-29] MEDS ORDERED: Furosemide 80 MG in 0.9 % Sodium Chloride 50 ML IVPB ONE (14:57)
[2020-05-29] MEDS: Cefepime HCl 1,000 MG in Water for inj. (sterile) 10 ML IVP SCH (19:57)
[2020-05-30] MEDS: Ipratropium 1 PUFF INHALER IH SCH ×4 (03:38→21:33)
[2020-05-30 05:49] LABS: Basophils % 0.3 %
[2020-05-30 05:51] LABS: Hematocrit 39.3 % (37.5-50.1); Hemoglobin 12.7 g/dL (12.9-16.9); Immature Granulocytes % 2.8 % (0-4); Lymphocytes % 1.4 %; Mean Corpuscular HGB Conc 32.3 g/dL (31.6-35.5); Mean Corpuscular Hemoglobin 31.8 pg (28.0-33.3); Mean Corpuscular Volume 98.5 fL (83.0-100.0); Mean Platelet Volume 11.1 fL (9.4-12.4); Monocytes # 2.5 K/mcL (0.0-1.3); Monocytes % 5.4 %; Neutrophils # 41.5 K/mcL (1.6-8.9); Platelet Count 175 K/mcL (140-400); Red Blood Count 3.99 M/mcL (4.19-5.50); Red Cell Distribution Width 15.6 % (11.5-14.5); Segmented Neutrophils % 90.1 %
[2020-05-30 05:52] LABS: Basophils # 0.1 K/mcL (0.0-0.2); Lymphocytes # 0.7 K/mcL (0.6-4.6)
[2020-05-30 05:55] LABS: White Blood Count 46.1 K/mcL (4.3-11.1)
[2020-05-30 06:08] LABS: Blood Urea Nitrogen > 130 mg/dL (8-23); Calcium 9.6 mg/dL (8.6-10.3); Carbon Dioxide 22 mEq/L (23-29); Chloride 103 mEq/L (98-107); Glucose 93 mg/dL (70-105); Potassium 5.8 mEq/L (3.5-5.1); Sodium 142 mEq/L (136-145); eGFR For African Americans 13 (> 60); eGFR For Non-African Americans 11 (> 60)
[2020-05-30 06:09] LABS: Platelet Estimate Normal (Normal)
[2020-05-30] MEDS: Piperacillin/Tazobactam 3.375 GM in 0.9 % Sodium Chloride Mini Bag 100 ML IVPB SCH ×2 (06:37→18:18)
[2020-05-30] MEDS ORDERED: Vancomycin 1,250 MG/262.5 ML IV.SOLN IVPB ONE (07:00)
[2020-05-30] MEDS ORDERED: 0.9 % Sodium Chloride 250 ML IVC PRN (07:29)
[2020-05-30] MEDS: Dexamethasone 4 MG/ML VIAL IVP SCH (07:39)
[2020-05-30] MEDS: Bumetanide 1 MG TABLET PO SCH ×2 (07:39→16:30)
[2020-05-30] MEDS: Calcium Acetate 667 MG CAPSULE PO SCH ×3 (07:40→16:30)
[2020-05-30] MEDS ORDERED: *HR* Heparin 10,000 UNIT/10 ML VIAL IV PRN (07:50)
[2020-05-30] MEDS: Heparin 25,000UNIT/250ML 1/2NS 25,000 UNIT/250 ML IV.SOLN IVC SCH (08:00)
[2020-05-30] MEDS: Dexmedetomidine HCl 400 MCG/100 ML MLS IVC SCH ×2 (10:40→22:54)
[2020-05-30] MEDS: Budesonide/Formoterol 80/4.5 1 PUFF INH IH SCH ×2 (10:51→21:33)
[2020-05-31] MEDS: Ipratropium 1 PUFF INHALER IH SCH ×4 (03:01→21:40)
[2020-05-31] MEDS: Piperacillin/Tazobactam 3.375 GM in 0.9 % Sodium Chloride Mini Bag 100 ML IVPB SCH ×2 (05:27→17:48)
[2020-05-31 05:36] LABS: Basophils % 0.3 %; Hemoglobin 12.2 g/dL (12.9-16.9); Immature Granulocytes % 2.2 % (0-4)
[2020-05-31 05:37] LABS: Basophils # 0.1 K/mcL (0.0-0.2); Hematocrit 37.7 % (37.5-50.1); Lymphocytes # 0.6 K/mcL (0.6-4.6); Lymphocytes % 1.6 %; Mean Corpuscular HGB Conc 32.4 g/dL (31.6-35.5); Mean Corpuscular Hemoglobin 32.4 pg (28.0-33.3); Mean Platelet Volume 11.8 fL (9.4-12.4); Monocytes # 1.7 K/mcL (0.0-1.3); Monocytes % 4.3 %; Neutrophils # 36.2 K/mcL (1.6-8.9); Platelet Count 123 K/mcL (140-400); Red Blood Count 3.77 M/mcL (4.19-5.50); Red Cell Distribution Width 15.6 % (11.5-14.5); Segmented Neutrophils % 91.6 %
[2020-05-31 05:43] LABS: White Blood Count 39.5 K/mcL (4.3-11.1)
[2020-05-31 05:51] LABS: Calcium 9.1 mg/dL (8.6-10.3); Potassium 5.9 mEq/L (3.5-5.1)
[2020-05-31 06:13] LABS: Platelet Estimate Decreased (Normal)
[2020-05-31] MEDS: Calcium Acetate 667 MG CAPSULE PO SCH ×4 (08:21→15:15)
[2020-05-31] MEDS: Bumetanide 1 MG TABLET PO SCH ×2 (08:21→15:15)
[2020-05-31] MEDS ORDERED: 0.9 % Sodium Chloride 250 ML IVC PRN (10:05)
[2020-05-31] MEDS: Budesonide/Formoterol 80/4.5 1 PUFF INH IH SCH ×2 (10:45→21:40)
[2020-05-31] MEDS ORDERED: *HR* Dextrose 50 % in Water (Vial) 50 ML VIAL IVP PRN (10:58)
[2020-05-31] MEDS ORDERED: *HR* Heparin 10,000 UNIT/10 ML VIAL ONE (11:08)
[2020-05-31] MEDS ORDERED: *HR* LORazepam 0.5 MG TABLET PO PRN (11:37)
[2020-05-31] MEDS: *HR* LORazepam 2 MG/ML VIAL IVP PRN ×2 (11:45→12:55)
[2020-05-31] MEDS ORDERED: *HR* LORazepam 2 MG/ML VIAL IVP ONE (13:35)
[2020-05-31] MEDS ORDERED: *HR* Metoprolol 5 MG/5 ML VIAL IVP ONE ×2 (13:35)
[2020-05-31] MEDS ORDERED: Furosemide 40 MG/4 ML VIAL IVP ONE (13:49)
[2020-05-31] MEDS ORDERED: Furosemide 100 MG in 0.9 % Sodium Chloride 50 ML IVPB ONE (13:54)
[2020-05-31] MEDS: Norepinephrine 4 MG/254 ML IV.SOLN IVC SCH (15:09)
[2020-05-31 15:36] LABS: Calcium 9.7 mg/dL (8.6-10.3); Potassium 5.7 mEq/L (3.5-5.1)
[2020-05-31] MEDS: Dexamethasone 4 MG/ML VIAL IVP SCH (15:53)
[2020-05-31] MEDS: *HR* Heparin 5,000 UNIT/ML VIAL SQ SCH ×2 (15:54→21:24)
[2020-05-31] MEDS ORDERED: Vancomycin 500 MG in 0.9 % Sodium Chloride Mini Bag 100 ML IVPB ONE (16:00)
[2020-05-31] MEDS: Dexmedetomidine HCl 400 MCG/100 ML MLS IVC SCH (17:01)
[2020-05-31] MEDS ORDERED: *HR* Heparin 5,000 UNIT/ML VIAL ONE ×2 (17:19→17:39)
[2020-05-31] MEDS ORDERED: *HR* Dextrose 50 % in Water (Vial) 50 ML VIAL IVP ONE (17:29)
[2020-05-31] MEDS ORDERED: Insulin Human Regular 10 UNIT in 0.9 % Sodium Chloride 10 ML IV ONE (17:29)
[2020-06-01] MEDS: Dexmedetomidine HCl 400 MCG/100 ML MLS IVC SCH ×3 (00:34→16:04)
[2020-06-01] MEDS: Norepinephrine 4 MG/254 ML IV.SOLN IVC SCH (02:34)
[2020-06-01] MEDS: Ipratropium 1 PUFF INHALER IH SCH ×2 (03:22→09:43)
[2020-06-01 04:21] LABS: Immature Granulocytes % 2.6 % (0-4); Nucleated Red Blood Cells 0.1 /100 WBC (0)
[2020-06-01 04:23] LABS: Basophils # 0.1 K/mcL (0.0-0.2); Basophils % 0.1 %; Hematocrit 40.5 % (37.5-50.1); Hemoglobin 12.5 g/dL (12.9-16.9); Lymphocytes # 0.2 K/mcL (0.6-4.6); Lymphocytes % 0.4 %; Mean Corpuscular HGB Conc 30.9 g/dL (31.6-35.5); Mean Corpuscular Hemoglobin 31.2 pg (28.0-33.3); Mean Platelet Volume 12.1 fL (9.4-12.4); Monocytes # 1.3 K/mcL (0.0-1.3); Monocytes % 2.4 %; Neutrophils # 52.9 K/mcL (1.6-8.9); Platelet Count 124 K/mcL (140-400); Red Blood Count 4.01 M/mcL (4.19-5.50); Segmented Neutrophils % 94.5 %
[2020-06-01 04:44] LABS: Platelet Estimate Decreased (Normal)
[2020-06-01 04:45] LABS: Blood Urea Nitrogen > 130 mg/dL (8-23); Carbon Dioxide 18 mEq/L (23-29); Chloride 105 mEq/L (98-107); Glucose 102 mg/dL (70-105); Potassium 6.5 mEq/L (3.5-5.1); Sodium 143 mEq/L (136-145); eGFR For African Americans 11 (> 60); eGFR For Non-African Americans 9 (> 60)
[2020-06-01] MEDS ORDERED: Calcium Gluconate 1gm/50mL 1 GM/50 ML BAG IVPB ONE ×2 (05:46→07:30)
[2020-06-01] MEDS ORDERED: Insulin Human Regular 10 UNIT in 0.9 % Sodium Chloride 10 ML IV ONE ×2 (05:48→07:29)
[2020-06-01] MEDS ORDERED: D5% in Water 1,000 ML IVC SCH (06:00)
[2020-06-01] MEDS: Piperacillin/Tazobactam 3.375 GM in 0.9 % Sodium Chloride Mini Bag 100 ML IVPB SCH (06:00)
[2020-06-01] MEDS: *HR* Heparin 5,000 UNIT/ML VIAL SQ SCH ×2 (06:01→06:11)
[2020-06-01] MEDS ORDERED: *HR* Dextrose 50 % in Water (Vial) 50 ML VIAL IVP ONE (07:30)
[2020-06-01] MEDS: Calcium Acetate 667 MG CAPSULE PO SCH ×2 (07:58→09:51)
[2020-06-01] MEDS: Bumetanide 1 MG TABLET PO SCH ×2 (07:58→09:51)
[2020-06-01] MEDS: Dexamethasone 4 MG/ML VIAL IVP SCH (09:02)
[2020-06-01 09:15] LABS: Blood Urea Nitrogen > 130 mg/dL (8-23); Calcium 9.3 mg/dL (8.6-10.3); Carbon Dioxide 17 mEq/L (23-29); Chloride 106 mEq/L (98-107); Glucose 92 mg/dL (70-105); Potassium 6.1 mEq/L (3.5-5.1); Sodium 144 mEq/L (136-145); eGFR For African Americans 10 (> 60); eGFR For Non-African Americans 8 (> 60)
[2020-06-01] MEDS: Budesonide/Formoterol 80/4.5 1 PUFF INH IH SCH (09:42)
[2020-06-01] MEDS ORDERED: *HR* LORazepam 2 MG/ML VIAL IVP PRN (14:03)
[2020-06-01] MEDS ORDERED: Haloperidol Lactate 5 MG/ML VIAL IVP PRN (14:04)
[2020-06-01] MEDS ORDERED: FentaNYL (PF) 1,000 MCG/100 ML IV.SOLN IVC SCH (14:15)
[2020-06-01 20:34] VITALS: BP 106/56
== END 2020-06-01 22:50 | disposition expired | DRG 177 ==
LOC: SUATTDRO → 2NENU 09:54 → EMEROOARM 09:54 → SUATTDRO 17:10 → 2NENU 18:05
PROVIDERS: ADMIT Internal Medicine; ATTEND Internal Medicine
PROC: IRPERMA (2020-05-28 12:00)